=== PATIENT | female | born 2000 | race Two or more races ===

== ENCOUNTER 2021-03-04 08:54 | Emergency (ER) | payer SELFPAY ==
[~2021-03-04] VITALS: Ht 165.1 cm; Wt 69.5 kg
--- NOTE | 2021-03-04 09:16 | PHYS DOC ---
Past Medical History Past Medical History: No Pertinent History Past Surgical History: No Surgical History Smoking Status: Never Smoker Alcohol Use: None Drug Use: None Adult General HPI HPI Patient is a 20 year old female who presents with possible foreign body in the vagina. Patient is currently on her menstrual cycle. She remembers placing a tampon in her vagina around 6:00 this morning. She subsequently went to retrieve it and could not. She denies any additional symptoms. No pain. No irregular odor or discharge. No urinary symptoms. Review of Systems Review of Systems Constitutional: Denies fever or chills Eyes: Denies change in visual acuity, redness, or eye pain HENT: Denies nasal congestion or sore throat Respiratory: Denies cough or shortness of breath Cardiovascular: No additional information not addressed in HPI GI: Denies abdominal pain, nausea, vomiting, bloody stools or diarrhea : as documented in HPI Musculoskeletal: Denies back pain or joint pain Integument: Denies rash or skin lesions Neurologic: Denies headache, focal weakness or sensory changes Endocrine: Denies polyuria or polydipsia All other systems were reviewed and found to be within normal limits, except as documented in this note. Allergies Allergies Allergies Coded Allergies Type Severity Reaction Last Updated Verified No Known Drug Allergies 08/08/15 No Physical Exam Physical Exam Constitutional: Well developed, well nourished, no acute distress, non-toxic appearance. HENT: Normocephalic, oropharynx moist Eyes: conjunctiva normal Neck: Normal range of motion Cardiovascular:Heart rate normal Lungs & Thorax: normal respiratory effort Abdomen: Bowel sounds normal, soft, NTTP Skin: Warm, dry Neurologic: Alert and oriented X 3 Psychologic: Affect normal : Normal external female genitalia. Vaginal mucosa is moist and noninflamed. Normal-appearing cervix. No foreign bodies are seen or palpated during full speculum and bimanual examination. EKG EKG [] Radiology/Procedures Radiology/Procedures [] Course & Med Decision Making Course & Med Decision Making Pertinent Labs and Imaging studies reviewed. (See chart for details) Patient is evaluated on arrival to her room. Pelvic examination was completed and accompanied by female registered nurse. No foreign bodies are seen during exam. Otherwise, normal exam and patient stable for discharge home. She is given reassurance. Return precautions discussed and she will come back to the ER for any discharge, foul odor, pelvic pain, cramps, or other symptoms Dragon Disclaimer Dragon Disclaimer This electronic medical record was generated, in whole or in part, using a voice recognition dictation system. Departure Departure Impression: Primary Impression: Feared condition not demonstrated Disposition: 01 HOME / SELF CARE / HOMELESS Condition: IMPROVED Referrals: NO PCP (PCP) Patient Instructions: Exam, Normal, Adult GLORIA STEINBERG DO Mar 04, 2021 09:16
[2021-03-04 09:22] VITALS: BP 103/57
== END 2021-03-04 09:46 | disposition home or self-care (01) ==
LOC: ER 08:54
DX: Z71.1 Person with feared health complaint in whom no diagnosis is made (principal)
CPT/HCPCS: 99281